=== PATIENT | female | born 1965 | race Caucasian/White ===

== ENCOUNTER → 2018-01-04 | Outpatient (CLI) | payer OTHER ==
[~2018-01-04] MED LIST: ESTR0.5T PO; MULT-336 PO; PROG100C2 PO; THYR120T PO
== END | disposition home or self-care (01) ==
LOC: CFH 12:32
PROVIDERS: ATTEND Nurse Practitioner Primary Care
DX: G95.29 Other cord compression (principal); R07.9 Chest pain, unspecified; G89.29 Other chronic pain
CPT/HCPCS: 71046; 72072